=== PATIENT | male | born 1990 | race Caucasian/White ===

== ENCOUNTER 2020-04-07 08:32 | Outpatient (CLI) | payer MEDICAID, SELFPAY ==
--- NOTE | 2020-04-07 08:30 | RT.EKG_ITS ---
APPROVED REPORT Exam: Resting ECG Patient Location: O HR:67 bpm ECG Measurements Heart Rate 67 AXIS ND 150 P 60 QRSd 81 QRS 66 QT 428 T 39 QTc 453 Conclusion Sinus rhythm...normal P axis, V-rate 60- 99 Normal Electrocardiogram
== END 2020-04-07 08:52 ==
PROVIDERS: Visit Provider Family Medicine
DX: Z79.899 Other long term (current) drug therapy (principal); Z13.6 Encounter for screening for cardiovascular disorders
CPT/HCPCS: 93005; 93010

== ENCOUNTER 2020-08-11 02:56 | Outpatient (CLI) | payer MEDICAID, SELFPAY ==
--- NOTE | 2020-08-11 08:15 | RT.EKG_ITS ---
APPROVED REPORT Exam: Resting ECG Patient Location: O HR:56 bpm ECG Measurements Heart Rate 56 AXIS HI 132 P 58 QRSd 81 QRS 29 QT 426 T 56 QTc 411 Conclusion Sinus bradycardia...rate< 60 Poor R wave progression
== END 2020-08-11 02:57 | disposition home or self-care (01) ==
PROVIDERS: Visit Provider Family Medicine
DX: R00.1 Bradycardia, unspecified (principal); Z79.899 Other long term (current) drug therapy
CPT/HCPCS: 93005; 93010